=== PATIENT | male | born 1940 | race Caucasian/White ===

== ENCOUNTER 2017-03-14 19:33 | Emergency (ER) | payer MEDICARE ==
[2017-03-14 19:54] VITALS: RESP 20; O2SAT 97
[2017-03-14] MEDS ORDERED: Lidocaine 2% Inj (20ml) ONE (20:10)
[2017-03-14] MEDS ORDERED: Bacitracin 500 Units/gm Oint Foilpak UD ONE (20:23)
--- NOTE | 2017-03-14 20:25 | C.PDOC ---
History Of Present Illness Patient is a 76 y/o male who presents to the ED with a complaint of a head injury s/p tripping and falling down the stairs. Patient sustained facial injuries, laceration to right knee. Pt denies any LOC or vomiting. No other physical complaints at this time. Time Seen by Provider: 03/14/17 20:02 Chief Complaint (Nursing): Abnormal Skin Integrity History Per: Patient History/Exam Limitations: no limitations Current Symptoms Are (Timing): Still Present Location Of Injury: Right: Leg, Anterior: Head Recent travel outside of the [place]: No Past Medical History Reviewed: Historical Data, Nursing Documentation, Vital Signs Vital Signs: Last Vital Signs Temp 98.8 F 03/14/17 20:27 Pulse 83 03/14/17 20:27 Resp 20 03/14/17 20:27 BP 182/69 H 03/14/17 20:27 Pulse Ox 97 03/14/17 21:32 - Medical History PMH: HTN Surgical History: Appendectomy, Cholecystectomy Family History: States: No Known Family Hx - Social History Hx Alcohol Use: Yes Hx Substance Use: No - Immunization History Hx Tetanus Toxoid Vaccination: No Hx Influenza Vaccination: No Hx Pneumococcal Vaccination: No Review Of Systems Constitutional: Negative for: Weakness Gastrointestinal: Negative for: Vomiting Skin: Positive for: Other (abrasion to the chin and laceration and contusion to right lower extremity) Neurological: Positive for: Other (negative LOC). Negative for: Weakness, Confusion, Headache, Dizziness Physical Exam - Physical Exam Appears: Well, Non-toxic, No Acute Distress Skin: Ecchymosis (proximal aspect of right tibial crump), Other (superficial abrasions to chin; small hematoma mid-occipital aspect of scalp; puncture laceration to right proximal aspect of right tibial crump with active bleeding) Head: No Tenderness (to facial bones. no facial asymmetry), Other (small hematoma mid-occipital region of scalp; no facial asymmetry) Oral Mucosa: Moist, No Trismus Neck: No Midline Cervical Tenderness, No Paracervical Tenderness, Supple Chest: Symmetrical Extremity: Normal ROM (to upper extremities and right knee/ankle), No Deformity , Swelling (minimal to right upper tibial crump), Other (minimal tenderness to right knee) Pulses: Left Dorsalis Pedis: Normal, Right Dorsalis Pedis: Normal Neurological/Psych: Oriented x3 Gait: Steady ED Course And Treatment O2 Sat by Pulse Oximetry: 97 Pulse Ox Interpretation: Normal Progress Note: Head injury care discussed with patient. I discussed the risk ( radiation) and benefit (finding a problem needing surgery) with the patient. The patient is acting normally and has a normal neurological exam. The likelihood of finding a lesion needing intervention on the CT scan is extremely low. Patient agrees that at this time no CT scan will be done. If there is any change or new concern, the patient will return as soon as possible to the ED for further evaluation. Laceration - Laceration Repair right tibial crump Wound Length (In cm): 0.5 Description Of Wound: Linear Wound Cleansed With: Sterile Saline (30ml) Anesthesia: Lidocaine 1% Wound Examination: Irrigated With Saline Wound Closure: Suture (x3) Suture Technique And Material Used: Running, Nylon (4.0) Wound Complexity: Simple Disposition Counseled Patient/Family Regarding: Diagnosis, Need For Followup, Rx Given - Disposition Referrals: Private MD, PMD [Other] Disposition: HOME/ ROUTINE Disposition Time: 20:23 Condition: STABLE Additional Instructions: Keep wound clean and dry Apply bacitracin oint to area Suture removal in 8-10 days Return to ER if severe headache, persistent dizziness, grogginess, weakness, vomiting or any signs of head injuries or worse Instructions: Care For Your Stitches (ED), Contusion in Adults (ED) Forms: [facility] (Greek) - Clinical Impression Clinical Impression: Head injury, Abrasion of chin, Contusion of lower limb, right, Laceration of right lower leg - Scribe Statement The provider has reviewed the documentation as recorded by the Scribcallum Chou All medical record entries made by the Jenniferibcallum were at my direction and personally dictated by me. I have reviewed the chart and agree that the record accurately reflects my personal performance of the history, physical exam, medical decision making, and the department course for this patient. I have also personally directed, reviewed, and agree with the discharge instructions and disposition.
[2017-03-14 20:28] VITALS: BP 182/69; PULSE 83; TEMP 98.8
== END 2017-03-14 20:45 | disposition home or self-care (01) ==
LOC: C.ER 19:33
DX: S81.011A Laceration without foreign body, right knee, initial encounter (principal); S80.11XA Contusion of right lower leg, initial encounter; S00.81XA Abrasion of other part of head, initial encounter; W01.0XXA Fall on same level from slipping, tripping and stumbling without subsequent striking against object, initial encounter; I10 Essential (primary) hypertension